=== PATIENT | male | born 1995 | race Caucasian/White ===

== ENCOUNTER 2017-04-22 14:41 | Emergency (ER) | payer OTHER ==
[~2017-04-22] VITALS: Ht 175.3 cm; Wt 80.8 kg
--- NOTE | 2017-04-22 17:45 | REP ---
Clinical: Pain. Technique: AP and axial views of the left clavicle. Findings: No acute fracture. Sternoclavicular and acromioclavicular joints are intact and normal. Surrounding soft tissues are unremarkable. Impression: Normal examination. No fracture. Signed by Alvarado Amaral MD 04/22/2017 05:36 P
--- NOTE | 2017-04-22 17:48 | REP ---
Clinical: Pain. Trauma. Technique: Internal rotation, external rotation, and Y view left shoulder . Findings: No acute fracture or dislocation. The acromioclavicular and glenohumeral joints are intact. No periarticular calcifications or degenerative changes are appreciated. Sub acromial space is normal. Surrounding soft tissues are unremarkable. Impression: Normal age-appropriate left shoulder radiographs. Signed by Alvarado Amaral MD 04/22/2017 05:37 P
[2017-04-22 18:05] VITALS: BP 130/82
== END 2017-04-22 18:06 | disposition home or self-care (01) ==
LOC: M ED 14:41
DX: R22.32 Localized swelling, mass and lump, left upper limb (principal); R07.89 Other chest pain; W06.XXXA Fall from bed, initial encounter; Y92.003 Bedroom of unspecified non-institutional (private) residence as the place of occurrence of the external cause; Y93.84 Activity, sleeping; Y99.8 Other external cause status

== ENCOUNTER 2019-02-21 16:34 | Emergency (ER) | payer OTHER ==
[~2019-02-21] VITALS: Ht 175.3 cm; Wt 81.8 kg
[2019-02-21 16:36] VITALS: BP 129/75
[2019-02-21] MEDS ORDERED: BACTRIM 160MG/800MG DS TAB PO ONE (17:30)
[2019-02-21] MEDS ORDERED: BACT800T5 PO (17:32)
== END 2019-02-21 17:56 | disposition home or self-care (01) ==
LOC: M ED 16:34
DX: L02.415 Cutaneous abscess of right lower limb (principal); L03.115 Cellulitis of right lower limb; Z72.0 Tobacco use